=== PATIENT | female | born 1990 | race Caucasian/White ===

== ENCOUNTER 2022-10-20 17:36 | Inpatient (IN) | payer BC, OTHER ==
[2022-10-20 18:30] VITALS: BMI 28.7
[2022-10-20] MEDS ORDERED: DINOPROSTONE 10 MG VAGINAL SUPPOSITORY VG ONE (18:45)
[2022-10-20] MEDS ORDERED: ELECTROLYTE-148 SOLN 1,000 ML IV ONE (18:45)
[2022-10-20 21:07] LABS: BASO % 0.2 % (0-2.0); EOS % 1.1 % (0-4.5); HEMATOCRIT 24.8 % (32.4-45.2); HEMOGLOBIN 7.7 GM/dL (10.7-15.3); LYMPH % 17.4 % (8-40); MCH 22.2 pg (25.7-33.7); MEAN CELL VOLUME 71.5 fl (80-96); MEAN PLT VOLUME 7.5 fl (7.5-11.1); MONO % 8.3 % (3.8-10.2); PLATELET COUNT 283 10^3/uL (134-434); RBC 3.46 M/mm3 (3.60-5.2); RDW 19.2 % (11.6-15.6); WHITE BLOOD COUNT 7.9 K/mm3 (4.0-10.0)
[2022-10-20 21:17] LABS: INR 0.94 (0.83-1.09); PROTHROMBIN TIME (PATIENT) 10.9 SEC (9.7-13.0)
[2022-10-20 21:19] LABS: ACTIVATED PTT 22.7 SECONDS (25.2-36.5)
[2022-10-20 21:41] LABS: POTASSIUM 3.7 mmol/L (3.5-5.1)
[2022-10-20 21:43] LABS: BLOOD UREA NITROGEN 10.2 mg/dL (7-18)
[2022-10-20 21:46] LABS: CREATININE 0.5 mg/dL (0.55-1.3)
[2022-10-20 22:27] LABS: SYPHILIS W/ RPR CONF NON-REACTIVE (NONREACTIVE)
[2022-10-20 22:55] LABS: HIV INTERPRETATION NEGATIVE (NEGATIVE)
[2022-10-21] MEDS: ELECTROLYTE-148 SOLN 1,000 ML IV SCH ×3 (03:00→17:50)
[2022-10-21] MEDS ORDERED: BUTORPHANOL TARTRATE 1 MG/ML VIAL IVPUSH ONE (08:11)
[2022-10-21] MEDS ORDERED: PROMETHAZINE HCL 25 MG/1 ML VIAL IVPB ONE (08:11)
[2022-10-21] MEDS ORDERED: OXYTOCIN 30 UNITS in 0.9% NS 30 UNIT/500 ML INFUS.BAG IVPB SCH (08:15)
[2022-10-21 08:19] LABS: BASO % 0.3 % (0-2.0); EOS % 1.2 % (0-4.5); HEMATOCRIT 23.3 % (32.4-45.2); HEMOGLOBIN 7.3 GM/dL (10.7-15.3); MCH 22.9 pg (25.7-33.7); MCHC 31.2 g/dl (32.0-36.0); MEAN CELL VOLUME 73.3 fl (80-96); MEAN PLT VOLUME 8.2 fl (7.5-11.1); MONO % 9.5 % (3.8-10.2); PLATELET COUNT 269 10^3/uL (134-434); RBC 3.18 M/mm3 (3.60-5.2); RDW 19.2 % (11.6-15.6); WHITE BLOOD COUNT 7.1 K/mm3 (4.0-10.0)
[2022-10-21] MEDS ORDERED: OXYTOCIN 30 UNITS in 0.9% NS 30 UNIT/500 ML INFUS.BAG IVPB ONE ×2 (12:18→19:26)
[2022-10-21] MEDS ORDERED: FENTANYL/BUPIVACAINE/NS/PF - PCEA - 50 ML DISP.SYRIN EP ONE (17:07)
[2022-10-21] MEDS ORDERED: FENTANYL CITRATE/PF 50 MCG/ML VIAL ONE ×2 (17:25→19:29)
[2022-10-21] MEDS: FENTANYL/BUPIVACAINE/NS/PF - PCEA - 50 ML DISP.SYRIN EP SCH (17:40)
[2022-10-21] MEDS ORDERED: NALOXONE HCL 0.4 MG/ML VIAL IVPUSH PRN (18:49)
[2022-10-21] MEDS ORDERED: CITRIC ACID/SODIUM CITRATE 30 ML UNIT-DOSE CUP PO ONE (18:55)
[2022-10-21] MEDS ORDERED: LIDO 2%/EPI 1:200000 PRESRVFRE (20 ML SDVIAL) ONE (19:26)
[2022-10-21] MEDS ORDERED: morphine SULFATE/PF 1 MG/2 ML (2cc Syringe - QUVA) ONE (19:29)
[2022-10-21] MEDS ORDERED: SODIUM BICARBONATE 8.4% 50 MEQ/50 ML VIAL ONE (19:32)
[2022-10-21] MEDS ORDERED: ePHEDrine SULFATE 50 MG/1 ML AMPULE ONE (19:45)
[2022-10-21] MEDS ORDERED: ceFAZolin SODIUM 1 GM VIAL ONE ×2 (19:48→19:49)
[2022-10-21] MEDS ORDERED: ONDANSETRON 4 MG/2 ML VIAL ONE (19:49)
[2022-10-21] MEDS ORDERED: SODIUM CHLORIDE 0.9% P/F 10 ML VIAL IJ ONE (19:49)
[2022-10-21] MEDS ORDERED: KETOROLAC TROMETHAMINE 30 MG/1 ML VIAL ONE (19:49)
[2022-10-21] MEDS ORDERED: OXYTOCIN 10 UNITS/ML VIAL ONE ×2 (20:10→21:04)
[2022-10-21 20:58] LABS: CORD BASE EXCESS -2.8 mmol/L (0-2); CORD HCO3 22.9 mmHg (20-29); CORD PCO2 43.1 mmHg (30-78); CORD pH 7.343 (7.14-7.44)
[2022-10-21 20:59] LABS: CORD BASE EXCESS -1.4 mmol/L (0-2); CORD HCO3 23.8 mmHg (20-29); CORD PCO2 41.8 mmHg (30-78); CORD pH 7.373 (7.14-7.44)
[2022-10-21] MEDS ORDERED: SENNOSIDES/DOCUSATE COMBO (SENNA PLUS) TABLET (UD) PO PRN (21:45)
[2022-10-21] MEDS ORDERED: ONDANSETRON 4 MG/2 ML VIAL IVPUSH PRN (21:49)
[2022-10-21] MEDS ORDERED: oxyCODONE HCL 5 MG TABLET PO PRN ×2 (21:49→21:50)
[2022-10-21] MEDS ORDERED: morphine SULFATE/PF 1 MG/2 ML (2cc Syringe - QUVA) EP ONE (21:49)
[2022-10-21] MEDS ORDERED: OXYTOCIN 20 UNITS in 0.9% NS 20 UNIT/1,000 ML INFUS.BAG IV ONE (21:55)
[2022-10-21] MEDS ORDERED: ACETAMINOPHEN INJECTION 100 ML IVPB ONE (21:55)
[2022-10-21] MEDS: ACETAMINOPHEN 1000 MG/100 ML BAG IVPB SCH (22:00)
[2022-10-21] MEDS: OXYTOCIN 20 UNITS in 0.9% NS 20 UNIT/1,000 ML INFUS.BAG IV SCH (22:00)
[2022-10-21 22:40] LABS: BASO % 0.4 % (0-2.0); EOS % 0.1 % (0-4.5); HEMATOCRIT 26.4 % (32.4-45.2); HEMOGLOBIN 8.2 GM/dL (10.7-15.3); LYMPH % 5.9 % (8-40); MCH 23.5 pg (25.7-33.7); MCHC 31.1 g/dl (32.0-36.0); MEAN CELL VOLUME 75.7 fl (80-96); MONO % 5.9 % (3.8-10.2); NEUT % 87.7 % (42.8-82.8); PLATELET COUNT 224 10^3/uL (134-434); RBC 3.49 M/mm3 (3.60-5.2); RDW 19.8 % (11.6-15.6); WHITE BLOOD COUNT 14.2 K/mm3 (4.0-10.0)
[2022-10-21] MEDS: IBUPROFEN 800 MG/8 ML IJ IVPB SCH ×2 (22:57→23:15)
[2022-10-21] MEDS ORDERED: IBUPROFEN 800 MG/8 ML IJ IVPB ONE (23:12)
[2022-10-22] MEDS: ACETAMINOPHEN 1000 MG/100 ML BAG IVPB SCH ×3 (05:16→21:58)
[2022-10-22] MEDS: IBUPROFEN 800 MG/8 ML IJ IVPB SCH ×3 (05:46→22:44)
[2022-10-22 07:20] LABS: EOS % 0.2 % (0-4.5); HEMOGLOBIN 7.4 GM/dL (10.7-15.3); LYMPH % 11.6 % (8-40); MCH 24.1 pg (25.7-33.7); MEAN CELL VOLUME 75.5 fl (80-96); MEAN PLT VOLUME 7.8 fl (7.5-11.1); MONO % 8.1 % (3.8-10.2); NEUT % 80.1 % (42.8-82.8); PLATELET COUNT 216 10^3/uL (134-434); RBC 3.05 M/mm3 (3.60-5.2); RDW 19.9 % (11.6-15.6); WHITE BLOOD COUNT 10.1 K/mm3 (4.0-10.0)
[2022-10-22] MEDS: OXYTOCIN 20 UNITS in 0.9% NS 20 UNIT/1,000 ML INFUS.BAG IV SCH (09:15)
[2022-10-22] MEDS: ASCORBIC ACID 500 MG TABLET (FP) PO SCH (09:50)
[2022-10-22] MEDS: FERROUS SO4 325 MG TABLET (FP) PO SCH ×2 (09:50→22:45)
[2022-10-22] MEDS ORDERED: PRENATAL VITAMINS W/ FOLIC ACID TABLET (FP) PO SCH (10:00)
[2022-10-22] MEDS ORDERED: BISACODYL 10 MG SUPP.RECT RC PRN (21:45)
[2022-10-23] MEDS: IBUPROFEN 600 MG TABLET (FP) PO PRN ×3 (06:24→20:21)
[2022-10-23] MEDS: FENTANYL/BUPIVACAINE/NS/PF - PCEA - 50 ML DISP.SYRIN EP SCH (07:23)
[2022-10-23 08:07] LABS: BASO % 0.2 % (0-2.0); EOS % 0.4 % (0-4.5); HEMATOCRIT 29.5 % (32.4-45.2); HEMOGLOBIN 9.6 GM/dL (10.7-15.3); LYMPH % 12.5 % (8-40); MCH 24.8 pg (25.7-33.7); MCHC 32.4 g/dl (32.0-36.0); MEAN CELL VOLUME 76.6 fl (80-96); MONO % 6.6 % (3.8-10.2); NEUT % 80.3 % (42.8-82.8); PLATELET COUNT 229 10^3/uL (134-434); RBC 3.85 M/mm3 (3.60-5.2); RDW 19.3 % (11.6-15.6); WHITE BLOOD COUNT 11.5 K/mm3 (4.0-10.0)
[2022-10-23] MEDS: ASCORBIC ACID 500 MG TABLET (FP) PO SCH (09:41)
[2022-10-23] MEDS: FERROUS SO4 325 MG TABLET (FP) PO SCH ×2 (09:41→21:40)
[2022-10-23] MEDS: SIMETHICONE 80 MG TAB.CHEW (FP) PO PRN ×2 (12:50→20:21)
[2022-10-23] MEDS: ACETAMINOPHEN 500 MG TABLET (FP) PO PRN (21:42)
[2022-10-24] MEDS: IBUPROFEN 600 MG TABLET (FP) PO PRN ×2 (06:04→19:58)
[2022-10-24] MEDS: ACETAMINOPHEN 500 MG TABLET (FP) PO PRN ×2 (09:52→23:15)
[2022-10-24] MEDS: SIMETHICONE 80 MG TAB.CHEW (FP) PO PRN ×2 (09:54→19:58)
[2022-10-24] MEDS: FERROUS SO4 325 MG TABLET (FP) PO SCH ×2 (09:54→21:31)
[2022-10-24] MEDS: ASCORBIC ACID 500 MG TABLET (FP) PO SCH (09:54)
[2022-10-24 16:46] LABS: BASO % 0.2 % (0-2.0); EOS % 0.7 % (0-4.5); HEMATOCRIT 30.2 % (32.4-45.2); HEMOGLOBIN 9.6 GM/dL (10.7-15.3); LYMPH % 17.7 % (8-40); MCH 24.6 pg (25.7-33.7); MEAN PLT VOLUME 7.5 fl (7.5-11.1); MONO % 9.2 % (3.8-10.2); NEUT % 72.2 % (42.8-82.8); PLATELET COUNT 266 10^3/uL (134-434); RBC 3.92 M/mm3 (3.60-5.2); RDW 20.1 % (11.6-15.6); WHITE BLOOD COUNT 8.4 K/mm3 (4.0-10.0)
[2022-10-25] MEDS: IBUPROFEN 600 MG TABLET (FP) PO PRN ×2 (04:53→18:12)
[2022-10-25] MEDS: ACETAMINOPHEN 500 MG TABLET (FP) PO PRN ×2 (08:41→20:30)
[2022-10-25 09:39] VITALS: RESP 18
[2022-10-25] MEDS: FERROUS SO4 325 MG TABLET (FP) PO SCH ×2 (10:36→22:08)
[2022-10-25] MEDS: ASCORBIC ACID 500 MG TABLET (FP) PO SCH (10:37)
[2022-10-25] MEDS: FENTANYL/BUPIVACAINE/NS/PF - PCEA - 50 ML DISP.SYRIN EP SCH (15:59)
[2022-10-25] MEDS ORDERED: SODIUM CHLORIDE 1,000 ML IV SCH ×2 (17:00→17:40)
[2022-10-25 18:22] LABS: BASO % 0.3 % (0-2.0); EOS % 2.1 % (0-4.5); HEMATOCRIT 33.1 % (32.4-45.2); HEMOGLOBIN 10.8 GM/dL (10.7-15.3); LYMPH % 17.2 % (8-40); MCH 25.1 pg (25.7-33.7); MCHC 32.6 g/dl (32.0-36.0); MEAN CELL VOLUME 77.1 fl (80-96); MEAN PLT VOLUME 7.4 fl (7.5-11.1); MONO % 8.6 % (3.8-10.2); NEUT % 71.8 % (42.8-82.8); PLATELET COUNT 327 10^3/uL (134-434); RDW 20.3 % (11.6-15.6); WHITE BLOOD COUNT 6.9 K/mm3 (4.0-10.0)
[2022-10-25 18:53] LABS: POTASSIUM 4.2 mmol/L (3.5-5.1)
[2022-10-25 18:54] LABS: CALCIUM 8.2 mg/dL (8.5-10.1)
[2022-10-25 18:55] LABS: ALBUMIN 2.4 g/dl (3.4-5.0); BLOOD UREA NITROGEN 9.4 mg/dL (7-18)
[2022-10-25 18:58] LABS: CREATININE 0.6 mg/dL (0.55-1.3)
[2022-10-25 19:00] LABS: BILIRUBIN,TOTAL 0.2 mg/dL (0.2-1); TOT PROT 6.1 g/dl (6.4-8.2)
[2022-10-25] MEDS: SIMETHICONE 80 MG TAB.CHEW (FP) PO PRN (20:31)
[2022-10-26] MEDS: IBUPROFEN 600 MG TABLET (FP) PO PRN (03:13)
[2022-10-26 09:01] VITALS: BP 121/75; PULSE 53; TEMP 98.8
[2022-10-26] MEDS: FERROUS SO4 325 MG TABLET (FP) PO SCH (09:17)
[2022-10-26] MEDS: SIMETHICONE 80 MG TAB.CHEW (FP) PO PRN (09:17)
[2022-10-26] MEDS: ACETAMINOPHEN 500 MG TABLET (FP) PO PRN (09:18)
[2022-10-26] MEDS: ASCORBIC ACID 500 MG TABLET (FP) PO SCH (09:20)
== END 2022-10-26 13:20 | disposition home or self-care (01) | DRG 540 ==
LOC: JLDR 17:36 → J3W 10-21 23:06
PROVIDERS: ADMIT Family Medicine; ATTEND Family Medicine
PROC: 10D00Z1 Extraction of Products of Conception, Low, Open Approach (ICD-10-PCS; principal; 2022-10-20)
PROC: 30233N1 Transfusion of Nonautologous Red Blood Cells into Peripheral Vein, Percutaneous Approach (ICD-10-PCS; 2022-10-21)
PROC: 3E0P7VZ Introduction of Hormone into Female Reproductive, Via Natural or Artificial Opening (ICD-10-PCS; 2022-10-21)
DX: O24.424 Gestational diabetes mellitus in childbirth, insulin controlled (principal); O62.0 Primary inadequate contractions; I95.1 Orthostatic hypotension; O90.81 Anemia of the puerperium; O86.4 Pyrexia of unknown origin following delivery; Z3A.39 39 weeks gestation of pregnancy; Z37.0 Single live birth
CPT/HCPCS: 36415; 36430; 36600; 80048; 80053; 82803; 82962; 85025; 85610; 85730; 86780; 86850; 86900; 86901; 86922; 87389; P9058